=== PATIENT | female | born 1955 | race Caucasian/White ===

== ENCOUNTER → 2017-03-28 | Outpatient (CLI) | payer OTHER | LOC: RAD 04:01 | DX: Z12.31 Encounter for screening mammogram for malignant neoplasm of breast (principal) ==

== ENCOUNTER → 2018-04-23 | Outpatient (CLI) | payer OTHER | LOC: RAD 04-10 01:13 | DX: Z12.31 Encounter for screening mammogram for malignant neoplasm of breast (principal) ==

== ENCOUNTER → 2019-06-24 | Outpatient (CLI) | payer OTHER | LOC: BC 15:05 | DX: Z12.31 Encounter for screening mammogram for malignant neoplasm of breast (principal) ==

== ENCOUNTER → 2020-06-25 | Outpatient (CLI) | payer OTHER | LOC: BC 10:51 | DX: Z12.31 Encounter for screening mammogram for malignant neoplasm of breast (principal) ==

== ENCOUNTER → 2021-06-29 | Outpatient (CLI) | payer OTHER | LOC: BC 15:04 | DX: Z12.31 Encounter for screening mammogram for malignant neoplasm of breast (principal); N64.89 Other specified disorders of breast ==